=== PATIENT | female | born 2000 | race Two or more races ===

== ENCOUNTER 2023-07-23 08:04 | Emergency (ER) | payer OTHER ==
[~2023-07-23] VITALS: Ht 162.6 cm; Wt 68.2 kg
[2023-07-23 08:09] VITALS: BP 103/64; PULSE 98; RESP 20; TEMP 98.4
[2023-07-23 08:45] LABS: BASOPHILS % (AUTO) 0.7 % (0.0-2.0); EOSINOPHILS % (AUTO) 2.9 % (1.0-6.0); HEMATOCRIT 36.8 % (36-46); HEMOGLOBIN 12.6 g/dL (12.0-16.0); LYMPHOCYTES % (AUTO) 22.2 % (22.0-44.0); MEAN CORPUSCULAR HEMOGLOBIN 31.5 pg (26.0-34.0); MEAN CORPUSCULAR HGB CONC 34.2 G/dL (31.0-37.0); MEAN CORPUSCULAR VOLUME 92 fL (80-100); MONOCYTES # (AUTO) 0.6 K/uL (0.1-1.0); MONOCYTES % (AUTO) 7.2 % (2.0-9.0); PLATELET COUNT (AUTO) 233 K/uL (150-450); RED CELL DISTRIBUTION WIDTH 13.2 % (11.5-14.5)
[2023-07-23] MEDS: PYRIDOXINE HCL 100 MG/ML VIAL IVP ONE (09:06)
[2023-07-23] MEDS: SODIUM CHLORIDE 0.9% 500 ML IV ONE (09:07)
[2023-07-23] MEDS: DOXYLAMINE SUCCINATE 25 MG TABLET PO ONE (09:07)
[2023-07-23 09:14] LABS: APPEARANCE,URINE HAZY (CLEAR); BILIRUBIN,URINE NEGATIVE (NEGATIVE); COLOR,URINE YELLOW (YELLOW); GLUCOSE, URINE (UA) NEGATIVE (NEGATIVE); KETONES,URINE 80-100 mg/dL (NEGATIVE); LEUKOCYTE ESTERASE ,URINE MODERATE (NEGATIVE); NITRATE,URINE NEGATIVE (NEGATIVE); OCCULT BLOOD,URINE NEGATIVE (NEGATIVE); PROTEIN,URINE 30-70 mg/dL (NEGATIVE); SPECIFIC GRAVITIY, URINE 1.029 (1.003-1.030)
[2023-07-23 09:21] LABS: BACTERIA,URINE Many /HPF (None Seen); RBC,URINE 0-2 /HPF (0-2); SQUAMOUS EPITHELIAL CELL,UR Many /LPF (None Seen)
[2023-07-23] MEDS: CefTRIAXone 1 GM/DEXTROSE 50 ML IV ONE (09:36)
[2023-07-23] MEDS ORDERED: DOXY1TAB3 PO (09:45)
[2023-07-23] MEDS ORDERED: CEPH-558 PO (09:46)
== END 2023-07-23 10:39 | disposition home or self-care (01) ==
LOC: EMS 08:06
DX: O23.42 Unspecified infection of urinary tract in pregnancy, second trimester (principal); O21.9 Vomiting of pregnancy, unspecified; O99.342 Other mental disorders complicating pregnancy, second trimester; N39.0 Urinary tract infection, site not specified; J45.909 Unspecified asthma, uncomplicated; F31.9 Bipolar disorder, unspecified; Z3A.17 17 weeks gestation of pregnancy
CPT/HCPCS: 99284; 96365; 96375; 81001; 84702; 85025; 86901; 36415; 87086; 87186; J0696; J3415; J7040